=== PATIENT | male | born 1985 | race Caucasian/White ===

== ENCOUNTER 2020-07-15 10:48 | Inpatient (IN) | payer OTHER ==
[2020-07-15] MEDS ORDERED: SODIUM CHLORIDE 0.9% 1,000 ML IV ONE (10:52)
--- NOTE | 2020-07-15 11:04 | ED ---
General Adult HPI - General Stated complaint: Altered Time Seen by Provider: 07/15/20 10:50 Source: police, EMS, RN notes reviewed Mode of arrival: EMS Limitations: altered mental status - History of Present Illness Initial comments: 35-year-old male presenting with altered mental status. She was found at the [facility] border acting appropriately. He was transported to the [facility] side of the border where local police had gotten involved along with paramedics. Apparently the patient had been staring off into space, not acting appropriately. There was a reported history of a similar incident with this patient approximately one week ago at the [facility]. Patient is not answering any questions. He had stable vitals during transport, normal blood glucose. He had purposeful movement according to EMS throughout transport. He did ambulate to the stretcher initially. - Related Data Home Medications Medication Instructions Recorded Confirmed No Known Home Medications 07/15/20 07/15/20 Allergies Allergy/AdvReac Type Severity Reaction Status Date / Time No Known Allergies Allergy Unverified 07/15/20 11:55 Review of Systems ROS Statement: Those systems with pertinent positive or pertinent negative responses have been documented in the HPI. ROS Other: All systems not noted in ROS Statement are negative. Past Medical History Past Medical History: Unable to Obtain History of Any Multi-Drug Resistant Organisms: Unobtainable Past Surgical History: Unable to Obtain Smoking Status: Unknown if ever smoked Past Alcohol Use History: Unable to Obtain Past Drug Use History: Unable to Obtain General Exam Limitations: altered mental status General appearance: in no apparent distress, appears intoxicated, lethargic Head exam: Present: atraumatic, normocephalic Eye exam: Present: normal appearance, PERRL ENT exam: Present: normal exam Neck exam: Present: normal inspection. Absent: tenderness, meningismus Respiratory exam: Present: other (Mild tachypnea). Absent: respiratory distress Cardiovascular Exam: Present: regular rate, normal rhythm GI/Abdominal exam: Present: soft. Absent: distended, tenderness, guarding, rebound Extremities exam: Present: normal inspection, normal capillary refill. Absent: calf tenderness Neurological exam: Present: motor sensory deficit (Patient does appear to have purposeful movement in all 4 extremities.). Absent: alert, oriented X3 Skin exam: Present: warm, dry Course Vital Signs 07/15/20 07/15/20 10:49 11:12 Temperature 99.1 F Pulse Rate 83 82 Respiratory 18 18 Rate Blood Pressure 163/107 143/91 O2 Sat by Pulse 100 100 Oximetry - Reevaluation(s) Reevaluation #1: 07/15/20 12:13 Patient awake alert, threatening to leave, acting acutely psychotic. He has be en petitioned by police for his behavior. Medical history and psychiatric history is not known on this patient. He will be evaluated by EPS. His medical clearance has been complete his drug screen is positive for THC, otherwise no acute abnormalities. EKG Findings - EKG Comments: EKG Findings:: EKG: Normal sinus rhythm, rate of 75 AR interval 154, QRS duration 84, QTC 457, no ST segment elevation. Procedures - Restraint - Face to Face Restraint Occurrence 1 Patient's Immediate Situation: Endangers self safety, Endangers others' safety, Endangers staff safety Patient's Reaction to the Intervention: Appropriate, Calm, Relaxed, Cooperative Patient's Medical & Behavioral Condition: Awake, Alert, Follows directions Need to Continue or Terminate Restraint or Seclusion: Continue Face to Face Eval of Restraint Date: 07/15/20 Face to Face Eval of Restraint Time: 12:13 Medical Decision Making - Medical Decision Making Patient was medically cleared, he is answering questions, he is evaluated by EPS and felt to require inpatient psychiatric evaluation and treatment. He will be admitted to this institution. - Lab Data Result diagrams: 07/15/20 10:57 07/15/20 10:57 Lab Results 07/15/20 07/15/20 07/15/20 Range/Units 10:57 10:57 10:57 WBC 12.0 H (3.8-10.6) k/uL RBC 5.39 (4.30-5.90) m/uL Hgb 16.3 (13.0-17.5) gm/dL Hct 46.2 (39.0-53.0) % MCV 85.8 (80.0-100.0) fL MCH 30.3 (25.0-35.0) pg MCHC 35.4 (31.0-37.0) g/dL RDW 13.5 (11.5-15.5) % Plt Count 222 (150-450) k/uL MPV 9.5 Neutrophils % 78 % Lymphocytes % 12 % Monocytes % 7 % Eosinophils % 2 % Basophils % 0 % Neutrophils # 9.3 H (1.3-7.7) k/uL Lymphocytes # 1.4 (1.0-4.8) k/uL Monocytes # 0.8 (0-1.0) k/uL Eosinophils # 0.3 (0-0.7) k/uL Basophils # 0.1 (0-0.2) k/uL PT 10.8 (9.0-12.0) sec INR 1.0 (<1.2) APTT 23.2 (22.0-30.0) sec Sodium (137-145) mmol/L Potassium (3.5-5.1) mmol/L Chloride (98-107) mmol/L Carbon Dioxide (22-30) mmol/L Anion Gap mmol/L BUN (9-20) mg/dL Creatinine (0.66-1.25) mg/dL Est GFR (CKD-EPI)AfAm (>60 ml/min/1.73 sqM) Est GFR (CKD-EPI)NonAf (>60 ml/min/1.73 sqM) Glucose (74-99) mg/dL POC Glucose (mg/dL) (75-99) mg/dL POC Glu Principal Account Clerk ID Calcium (8.4-10.2) mg/dL Total Bilirubin (0.2-1.3) mg/dL AST (17-59) U/L ALT (4-49) U/L Alkaline Phosphatase (38-126) U/L Ammonia (<30) umol/L Total Protein (6.3-8.2) g/dL Albumin (3.5-5.0) g/dL Urine Color Yellow Urine Appearance Clear (Clear) Urine pH 6.5 (5.0-8.0) Ur Specific [place] 1.012 (1.001-1.035) Urine Protein Negative (Negative) Urine Glucose (UA) Negative (Negative) Urine Ketones 3+ H (Negative) Urine Blood Negative (Negative) Urine Nitrite Negative (Negative) Urine Bilirubin Negative (Negative) Urine Urobilinogen <2.0 (<2.0) mg/dL Ur Leukocyte Esterase Negative (Negative) Urine Opiates Screen Not Detected (NotDetected) Ur Oxycodone Screen Not Detected (NotDetected) Urine Methadone Screen Not Detected (NotDetected) Ur Propoxyphene Screen Not Detected (NotDetected) Ur Barbiturates Screen Not Detected (NotDetected) U Tricyclic Antidepress Not Detected (NotDetected) Ur Phencyclidine Scrn Not Detected (NotDetected) Ur Amphetamines Screen Not Detected (NotDetected) U Methamphetamines Scrn Not Detected (NotDetected) U Benzodiazepines Scrn Not Detected (NotDetected) Urine Cocaine Screen Not Detected (NotDetected) U Marijuana (THC) Screen Detected H (NotDetected) Serum Alcohol mg/dL 07/15/20 07/15/20 07/15/20 Range/Units 10:57 10:57 11:11 WBC (3.8-10.6) k/uL RBC (4.30-5.90) m/uL Hgb (13.0-17.5) gm/dL Hct (39.0-53.0) % MCV (80.0-100.0) fL MCH (25.0-35.0) pg MCHC (31.0-37.0) g/dL RDW (11.5-15.5) % Plt Count (150-450) k/uL MPV Neutrophils % % Lymphocytes % % Monocytes % % Eosinophils % % Basophils % % Neutrophils # (1.3-7.7) k/uL Lymphocytes # (1.0-4.8) k/uL Monocytes # (0-1.0) k/uL Eosinophils # (0-0.7) k/uL Basophils # (0-0.2) k/uL PT (9.0-12.0) sec INR (<1.2) APTT (22.0-30.0) sec Sodium 138 (137-145) mmol/L Potassium 3.9 (3.5-5.1) mmol/L Chloride 107 (98-107) mmol/L Carbon Dioxide 18 L (22-30) mmol/L Anion Gap 13 mmol/L BUN 12 (9-20) mg/dL Creatinine 0.81 (0.66-1.25) mg/dL Est GFR (CKD-EPI)AfAm >90 (>60 ml/min/1.73 sqM) Est GFR (CKD-EPI)NonAf >90 (>60 ml/min/1.73 sqM) Glucose 121 H (74-99) mg/dL POC Glucose (mg/dL) 114 H (75-99) mg/dL POC Glu Principal Account Clerk ID Michela Gutierrez Calcium 10.1 (8.4-10.2) mg/dL Total Bilirubin 0.9 (0.2-1.3) mg/dL AST 26 (17-59) U/L ALT 19 (4-49) U/L Alkaline Phosphatase 59 (38-126) U/L Ammonia 15 (<30) umol/L Total Protein 7.9 (6.3-8.2) g/dL Albumin 5.1 H (3.5-5.0) g/dL Urine Color Urine Appearance (Clear) Urine pH (5.0-8.0) Ur Specific [place] (1.001-1.035) Urine Protein (Negative) Urine Glucose (UA) (Negative) Urine Ketones (Negative) Urine Blood (Negative) Urine Nitrite (Negative) Urine Bilirubin (Negative) Urine Urobilinogen (<2.0) mg/dL Ur Leukocyte Esterase (Negative) Urine Opiates Screen (NotDetected) Ur Oxycodone Screen (NotDetected) Urine Methadone Screen (NotDetected) Ur Propoxyphene Screen (NotDetected) Ur Barbiturates Screen (NotDetected) U Tricyclic Antidepress (NotDetected) Ur Phencyclidine Scrn (NotDetected) Ur Amphetamines Screen (NotDetected) U Methamphetamines Scrn (NotDetected) U Benzodiazepines Scrn (NotDetected) Urine Cocaine Screen (NotDetected) U Marijuana (THC) Screen (NotDetected) Serum Alcohol <10 mg/dL Disposition Clinical Impression: Acute psychosis, Marijuana use Disposition: ADMITTED IP TO THIS [facility] Condition: Stable Is patient prescribed a controlled substance at d/c from ED?: No Referrals: None,Stated [Primary Care Provider] - 1-2 days Decision to Admit Reason: Admit from EC Decision Date: 07/15/20 Decision Time: 12:34
[2020-07-15 11:14] LABS: Glucose,Whole Blood 114 mg/dL (75-99)
[2020-07-15 11:15] LABS: Basophils # (A) 0.1 k/uL (0-0.2); Basophils % (A) 0 %; Eosinophils # (A) 0.3 k/uL (0-0.7); Eosinophils % (A) 2 %; HCT 46.2 % (39.0-53.0); HGB 16.3 gm/dL (13.0-17.5); Lymphocytes # (A) 1.4 k/uL (1.0-4.8); Lymphocytes % (A) 12 %; MCH 30.3 pg (25.0-35.0); MCHC 35.4 g/dL (31.0-37.0); MCV 85.8 fL (80.0-100.0); Mean Platelet Volume 9.5; Monocytes # (A) 0.8 k/uL (0-1.0); Monocytes % (A) 7 %; Neutrophils # (A) 9.3 k/uL (1.3-7.7); Neutrophils % (A) 78 %; Platelet Count 222 k/uL (150-450); RBC 5.39 m/uL (4.30-5.90); RDW 13.5 % (11.5-15.5)
[2020-07-15 11:26] LABS: ALT 19 U/L (4-49); AST 26 U/L (17-59); African American GFR (CKD) >90 (>60 ml/min/1.73 sqM); Albumin 5.1 g/dL (3.5-5.0); Alcohol <10 mg/dL; Alkaline Phosphatase 59 U/L (38-126); Anion Gap 13 mmol/L; Blood Urea Nitrogen 12 mg/dL (9-20); Calcium 10.1 mg/dL (8.4-10.2); Carbon Dioxide 18 mmol/L (22-30); Chloride 107 mmol/L (98-107); Glucose 121 mg/dL (74-99); Non-African American GFR(CKD) >90 (>60 ml/min/1.73 sqM); Potassium 3.9 mmol/L (3.5-5.1); Sodium 138 mmol/L (137-145); Total Bilirubin 0.9 mg/dL (0.2-1.3); Total Protein 7.9 g/dL (6.3-8.2)
[2020-07-15 11:27] LABS: Appearance,Urine Clear (Clear); Bilirubin,Urine Negative (Negative); Blood,Urine Negative (Negative); Color,Urine Yellow; Glucose,Urine (UA) Negative (Negative); Ketones,Urine 3+ (Negative); Leukocyte Esterase,Urine Negative (Negative); Nitrite,Urine Negative (Negative); PH, Urine 6.5 (5.0-8.0); Partial Thromboplastin Time 23.2 sec (22.0-30.0); Protein,Urine Negative (Negative); Prothrombin Time 10.8 sec (9.0-12.0); Specific Gravity,Urine 1.012 (1.001-1.035); Urobilinogen,Urine <2.0 mg/dL (<2.0)
--- NOTE | 2020-07-15 11:43 | CT ---
EXAMINATION TYPE: CT brain wo con DATE OF EXAM: 07/15/2020 COMPARISON: None. HISTORY: Altered mental status and confusion. CT DLP: 49.1 mGycm. Automated Exposure Control for Dose Reduction was Utilized. TECHNIQUE: CT scan of the head is performed without contrast. FINDINGS: There is no acute intracranial hemorrhage, mass effect, or midline shift identified. The ventricles and sulci are within normal limits in size. Cisneros-white matter differentiation is maintain ed. The globes are intact and the visualized sinuses are clear. No suspicious opacification mastoid a ir cells bilaterally. IMPRESSION: Unremarkable study.
[2020-07-15 11:57] LABS: Amphetamine Screen,Urine Not Detected (NotDetected); Barbiturate Screen,Urine Not Detected (NotDetected); Benzodiazepines Screen,Urine Not Detected (NotDetected); Cocaine Screen,Urine Not Detected (NotDetected); Methadone Screen, Urine Not Detected (NotDetected); Opiate Screen,Urine Not Detected (NotDetected); Oxycodone Screen, Urine Not Detected (NotDetected); Phencyclidine Screen,Urine Not Detected (NotDetected); Tricyclic Antidepressant,Urine Not Detected (NotDetected); Urn Cannabinoid Scrn Detected (NotDetected)
[2020-07-15] MEDS ORDERED: LORazepam 1 MG TAB PO PRN (14:03)
[2020-07-15] MEDS ORDERED: ACETAMINOPHEN TAB 325 MG TAB PO PRN (14:03)
[2020-07-15] MEDS ORDERED: MAGNESIUM HYDROXIDE 2,400 MG/10 ML CUP PO PRN (14:03)
[2020-07-15] MEDS ORDERED: MAG HYDROX/AL HYDROX/SIMETH 30 ML CUP PO PRN (14:03)
[2020-07-15] MEDS ORDERED: LORazepam 2 MG/ML INJ IM PRN (14:14)
[2020-07-15] MEDS ORDERED: HALOPERIDOL LACTATE 5 MG/ML 1 ML VIAL IM SCH (16:00)
[2020-07-15] MEDS ORDERED: HALOPERIDOL LACTATE 5 MG/ML 1 ML VIAL IM PRN (20:04)
--- NOTE | 2020-07-16 03:16 | P.MDCNMH ---
History of Present Illness H&P Date: 07/16/20 Chief Complaint: medical eval 35 year old male , no significant past medical history , mental health history of depression patien tclaims that he was having uncontrolled depression , with suicidal ideation. ER note, reported that he was found disoriented at the [facility]. patient admits to tobacco smoking, occasional weed, and occasional binging on alcohol . denies going through withdrawals when he does not drink. he otherwise, denies any fever, chills, chest pain , trouble breathing, cough, abd pain , nausea, vomiting, changes in bowel habits, or urinary habits. Review of Systems Pertinent positives as noted in HPI. All other systems were reviewed and are negative Past Medical History Past Medical History: Unable to Obtain History of Any Multi-Drug Resistant Organisms: Unobtainable Past Surgical History: Unable to Obtain Past Anesthesia/Blood Transfusion Reactions: No Reported Reaction Past Psychological History: No Psychological Hx Reported Smoking Status: Current every day smoker, Unknown if ever smoked Past Alcohol Use History: Unable to Obtain Past Drug Use History: None Reported Medications and Allergies Home Medications Medication Instructions Recorded Confirmed Type No Known Home Medications 07/15/20 07/15/20 History Allergies Allergy/AdvReac Type Severity Reaction Status Date / Time No Known Allergies Allergy Unverified 07/15/20 11:55 Physical Exam Vitals: Vital Signs Temp Pulse Pulse Resp BP BP Pulse Ox 07/15/20 16:01 96.9 F L 99 20 128/64 07/15/20 11:12 82 18 143/91 100 07/15/20 10:49 99.1 F 83 18 163/107 100 Intake and Output 07/15/20 07/15/20 07/16/20 14:59 22:59 06:59 Other: Weight 95.254 kg 86.296 kg Constitutional: No acute distress, conversant, pleasant Eyes: Anicteric sclerae, moist conjunctiva, Pupils equal round reactive to light ENMT: NC/AT Oropharynx clear, no erythema, or exudates Neck: Supple, FROM, no masses, or JVD No carotid bruits No thyromegaly Lungs: Clear to auscultation Clear to percussion Normal respiratory effort, no accessory muscle use Cardiovascular: Heart regular in rate and rhythm, No murmurs, gallops, or rubs No peripheral edema Abdominal: Soft Nontender, no guarding, rebound or rigidity Abdomen moving with respiration Normoactive bowel sounds No hepatomegaly, No splenomegaly No palpable mass No abdominal wall hernia noted Skin: Normal temperature, tone, texture, turgor No induration No subcutaneous nodules No rash, lesions No ulcers Extremities: No digital cyanosis No clubbing Pedal pulses intact and symmetrical Radial pulses intact and symmetrical No calf tenderness Psychiatric: Alert and oriented to person, place and time Appropriate affect fair judgement Neuro Muscles Strength 5/5 in all 4 extremities Sensation to light touch grossly present throughout Cranial nerves II-XII grossly intact No focal sensory deficits Lymphatics: no palpable cervical or supraclavicular , or inguinal lymph nodes Cranial Nerve Examination - Cranial Nerves Cranial Nerve II- Optic: Intact Cranial Nerve III- Oculomotor: Intact Cranial Nerve IV- Trochlear: Intact Cranial Nerve V- Trigeminal: Intact Cranial Nerve - Abducens: Intact Cranial Nerve VII- Facial: Intact Cranial Nerve VIII- Auditory: Intact Cranial Nerve IX- Glossopharyngeal: Intact Cranial Nerve X- Vagus: Intact Cranial Nerve XI- Accessory: Intact Cranial Nerve XII- Hypoglossal: Intact Results CBC & Chem 7: 07/15/20 10:57 07/15/20 10:57 Labs: Abnormal Lab Results - Last 24 Hours (Table) 07/15/20 07/15/20 07/15/20 Range/Units 10:57 10:57 10:57 WBC 12.0 H (3.8-10.6) k/uL Neutrophils # 9.3 H (1.3-7.7) k/uL Carbon Dioxide 18 L (22-30) mmol/L Glucose 121 H (74-99) mg/dL POC Glucose (mg/dL) (75-99) mg/dL Albumin 5.1 H (3.5-5.0) g/dL Urine Ketones 3+ H (Negative) U Marijuana (THC) Screen Detected H (NotDetected) 07/15/20 Range/Units 11:11 WBC (3.8-10.6) k/uL Neutrophils # (1.3-7.7) k/uL Carbon Dioxide (22-30) mmol/L Glucose (74-99) mg/dL POC Glucose (mg/dL) 114 H (75-99) mg/dL Albumin (3.5-5.0) g/dL Urine Ketones (Negative) U Marijuana (THC) Screen (NotDetected) Assessment and Plan Assessment: depression with suicidal ideation management per psych tobacco smoking NRT offered. labs reviewed Thank you for allowing us to participate in the care of this patient. We will follow peripherally. Do not hesitate to contact us with questions. Someone can be reached from the [facility] hospitalist group at all hours of the day at [phone].
[2020-07-16 08:56] LABS: Basophils # (A) 0.1 k/uL (0-0.2); Basophils % (A) 1 %; Eosinophils # (A) 0.1 k/uL (0-0.7); Eosinophils % (A) 1 %; HCT 48.5 % (39.0-53.0); HGB 15.9 gm/dL (13.0-17.5); Lymphocytes % (A) 22 %; MCH 29.3 pg (25.0-35.0); MCHC 32.7 g/dL (31.0-37.0); MCV 89.7 fL (80.0-100.0); Mean Platelet Volume 9.8; Monocytes # (A) 0.6 k/uL (0-1.0); Monocytes % (A) 7 %; Neutrophils # (A) 6.1 k/uL (1.3-7.7); Neutrophils % (A) 67 %; Platelet Count 221 k/uL (150-450); RBC 5.41 m/uL (4.30-5.90); RDW 14.2 % (11.5-15.5); WBC 9.1 k/uL (3.8-10.6)
[2020-07-16 09:23] LABS: ALT 18 U/L (4-49); AST 32 U/L (17-59); African American GFR (CKD) >90 (>60 ml/min/1.73 sqM); Albumin 4.8 g/dL (3.5-5.0); Alkaline Phosphatase 53 U/L (38-126); Anion Gap 9 mmol/L; Blood Urea Nitrogen 16 mg/dL (9-20); Calcium 9.6 mg/dL (8.4-10.2); Carbon Dioxide 25 mmol/L (22-30); Chloride 107 mmol/L (98-107); Cholesterol 136 mg/dL (<200); Glucose 90 mg/dL (74-99); HDL Cholesterol 60 mg/dL (40-60); LDL Cholesterol,Calculated 65 mg/dL (0-99); Non-African American GFR(CKD) >90 (>60 ml/min/1.73 sqM); Potassium 4.1 mmol/L (3.5-5.1); Sodium 141 mmol/L (137-145); Total Bilirubin 0.8 mg/dL (0.2-1.3); Total Protein 7.6 g/dL (6.3-8.2); Triglycerides 54 mg/dL (<150)
[2020-07-16] MEDS: NICOTINE 14MG/24HR PATCH TRANSDERM SCH (10:19)
--- NOTE | 2020-07-16 12:52 | P.HP ---
Psychiatric H&P - . H&P Date: 07/16/20 History & Physical: Allergies Allergy/AdvReac Type Severity Reaction Status Date / Time No Known Allergies Allergy Unverified 07/15/20 11:55 Vital Signs Temp 96.9 F L 07/15/20 16:01 Pulse 99 07/15/20 16:01 Resp 20 07/15/20 16:01 BP 128/64 07/15/20 16:01 Pulse Ox 100 07/15/20 11:12 Intake & Output 07/15/20 07/16/20 07/16/20 18:59 06:59 18:59 Weight 86.296 kg Laboratory Last Values WBC 9.1 k/uL (3.8-10.6) 07/16/20 06:44 RBC 5.41 m/uL (4.30-5.90) 07/16/20 06:44 Hgb 15.9 gm/dL (13.0-17.5) 07/16/20 06:44 Hct 48.5 % (39.0-53.0) 07/16/20 06:44 MCV 89.7 fL (80.0-100.0) 07/16/20 06:44 MCH 29.3 pg (25.0-35.0) 07/16/20 06:44 MCHC 32.7 g/dL (31.0-37.0) 07/16/20 06:44 RDW 14.2 % (11.5-15.5) 07/16/20 06:44 Plt Count 221 k/uL (150-450) 07/16/20 06:44 MPV 9.8 07/16/20 06:44 Neutrophils % 67 % 07/16/20 06:44 Lymphocytes % 22 % 07/16/20 06:44 Monocytes % 7 % 07/16/20 06:44 Eosinophils % 1 % 07/16/20 06:44 Basophils % 1 % 07/16/20 06:44 Neutrophils # 6.1 k/uL (1.3-7.7) 07/16/20 06:44 Lymphocytes # 2.0 k/uL (1.0-4.8) 07/16/20 06:44 Monocytes # 0.6 k/uL (0-1.0) 07/16/20 06:44 Eosinophils # 0.1 k/uL (0-0.7) 07/16/20 06:44 Basophils # 0.1 k/uL (0-0.2) 07/16/20 06:44 PT 10.8 sec (9.0-12.0) 07/15/20 10:57 INR 1.0 (<1.2) 07/15/20 10:57 APTT 23.2 sec (22.0-30.0) 07/15/20 10:57 Sodium 141 mmol/L (137-145) 07/16/20 06:44 Potassium 4.1 mmol/L (3.5-5.1) 07/16/20 06:44 Chloride 107 mmol/L (98-107) 07/16/20 06:44 Carbon Dioxide 25 mmol/L (22-30) 07/16/20 06:44 Anion Gap 9 mmol/L 07/16/20 06:44 BUN 16 mg/dL (9-20) 07/16/20 06:44 Creatinine 0.96 mg/dL (0.66-1.25) 07/16/20 06:44 Est GFR (CKD-EPI)AfAm >90 (>60 ml/min/1.73 sqM) 07/16/20 06:44 Est GFR (CKD-EPI)NonAf >90 (>60 ml/min/1.73 sqM) 07/16/20 06:44 Glucose 90 mg/dL (74-99) 07/16/20 06:44 POC Glucose (mg/dL) 114 mg/dL (75-99) H 07/15/20 11:11 POC Glu Blind Hooker ID Michela Gutierrez 07/15/20 11:11 Calcium 9.6 mg/dL (8.4-10.2) 07/16/20 06:44 Total Bilirubin 0.8 mg/dL (0.2-1.3) 07/16/20 06:44 AST 32 U/L (17-59) 07/16/20 06:44 ALT 18 U/L (4-49) 07/16/20 06:44 Alkaline Phosphatase 53 U/L (38-126) 07/16/20 06:44 Ammonia 15 umol/L (<30) 07/15/20 10:57 Total Protein 7.6 g/dL (6.3-8.2) 07/16/20 06:44 Albumin 4.8 g/dL (3.5-5.0) 07/16/20 06:44 Triglycerides 54 mg/dL (<150) 07/16/20 06:44 Cholesterol 136 mg/dL (<200) 07/16/20 06:44 LDL Cholesterol, Calc 65 mg/dL (0-99) 07/16/20 06:44 HDL Cholesterol 60 mg/dL (40-60) 07/16/20 06:44 TSH 1.310 mIU/L (0.465-4.680) 07/16/20 06:44 Urine Color Yellow 07/15/20 10:57 Urine Appearance Clear (Clear) 07/15/20 10:57 Urine pH 6.5 (5.0-8.0) 07/15/20 10:57 Ur Specific [place] 1.012 (1.001-1.035) 07/15/20 10:57 Urine Protein Negative (Negative) 07/15/20 10:57 Urine Glucose (UA) Negative (Negative) 07/15/20 10:57 Urine Ketones 3+ (Negative) H 07/15/20 10:57 Urine Blood Negative (Negative) 07/15/20 10:57 Urine Nitrite Negative (Negative) 07/15/20 10:57 Urine Bilirubin Negative (Negative) 07/15/20 10:57 Urine Urobilinogen <2.0 mg/dL (<2.0) 07/15/20 10:57 Ur Leukocyte Esterase Negative (Negative) 07/15/20 10:57 Urine Opiates Screen Not Detected (NotDetected) 07/15/20 10:57 Ur Oxycodone Screen Not Detected (NotDetected) 07/15/20 10:57 Urine Methadone Screen Not Detected (NotDetected) 07/15/20 10:57 Ur Propoxyphene Screen Not Detected (NotDetected) 07/15/20 10:57 Ur Barbiturates Screen Not Detected (NotDetected) 07/15/20 10:57 U Tricyclic Antidepress Not Detected (NotDetected) 07/15/20 10:57 Ur Phencyclidine Scrn Not Detected (NotDetected) 07/15/20 10:57 Ur Amphetamines Screen Not Detected (NotDetected) 07/15/20 10:57 U Methamphetamines Scrn Not Detected (NotDetected) 07/15/20 10:57 U Benzodiazepines Scrn Not Detected (NotDetected) 07/15/20 10:57 Urine Cocaine Screen Not Detected (NotDetected) 07/15/20 10:57 U Marijuana (THC) Screen Detected (NotDetected) H 07/15/20 10:57 Serum Alcohol <10 mg/dL 07/15/20 10:57 Coronavirus (PCR) Not Detected (Not Detectd) 07/15/20 16:38 07/16/20 11:36 IDENTIFYING DATA: Patient is a 35-year-old male who is currently single has 1 and 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 Patient was initially from [place]. HPI: Patient presented to the hospital yesterday for altered mental status. Patient was apparently found at the [facility] border trying to cross into [place] and was acting inappropriately. Patient was brought into the hospital by police and petition. Patient apparently was acting inappropriately with staff and was uncooperative in the ER. Patient's UDS is positive for marijuana. Patient was seen on the unit wandering the hallways and was Gri[place] to speak to bid writer. Patient appeared to be responding to internal stimuli looking around th e room and commenting on different pictures and different objects that he sees. He appeared to have poor hygiene and grooming. He states that he came in the hospital because a "seizure I don't know". He states that he does not know why the police brought him into the hospital and was fairly guarded/evasive. He did admit to trying to cross the border into [place] however stated that "I had a fee ling to go there" when asked why he was trying to do that. He states that he only has one friend there and knows nobody else. He did not give a clear reason as to why he wanted to go to [place]. He claims that he is coming from [place] and was in [place] for the past 2 days living in his car. He states that he knows [place] [place]" in [place] and states that he is helped him before in the past. When asked about medications he states that he only smokes medical marijuana and does not believe in psychiatric medications. He states his sleep is okay and appetite is okay. Patient had poor reality testing. Patient denies any suicidal or homicidal ideations intent or plan. At this time patient denies any auditory or visual hallucinations. He admits to using marijuana daily about one joint a day and smokes cigarettes. PAST PSYCHIATRIC HISTORY: Patient states that he has no mental health diagnosis. Patient denies being on any psychiatric medications. Patient denies any previous psychiatric hospitalizations. Patient denies any psychiatric outpatient follow- up. Patient denies any history of suicide attempts in the past. PMH:denies ALLERGIES: as per EMR CHEMICAL DEPENDENCY HISTORY: as per HPI FAMILY PSYCHIATRIC/SUBSTANCE USE HISTORY: He states that his cousin has some form of mental illness. SOCIAL HISTORY: Patient was born and raised in [facility]. He states that he is currently single unmarried has 1 and is unemployed. 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 He claims that he completed high school only. He claims that he went to group home for substance abuse including heroin and meth in the past. MENTAL STATUS EXAM: General Appearance: Patient appears to be well built, disheveled in appearance, stated age is alert, evasive/guarded. Responding to internal stimuli. Patient appears to have poor hygiene and grooming. Behavior: Patient is seated without any agitated behavior. Responding to internal stimuli Speech: Patient's speech is fluent and nonpressured. Mood/Affect: Patient reports their mood is "okay", affect is congruent and constricted. Suicidality/Homicidality: Patient denies having any homicidal ideation intent or plan. Denies any suicidal ideations intent or plan Perceptions: Patient denies any visual hallucinations and denies any auditory hallucinations Though content/process: Patient is delusional, is bizarre at times. He had poverty of content. Memory and concentration: AOX3, grossly intact for the purposes of this session. Can spell "WORLD" backwards Judgment and insight: poor STRENGTHS/WEAKNESSES: strength is that patient is resilient. Weakness is that patient has poor judgment and is impulsive INTELLECT: average IMPRESSIONS: Psychosis unspecified, rule out secondary to cannabis use Cannabis use disorder Nicotine dependence PLAN: -Patient is admitted under voluntary status to MHU for stabilization of psychiatric symptoms and safety. Patient has not signed medication consent and is placed in patient's chart. A second certification was completed and along with petition will be filed for court as patient claims that he does not want to take any medications and has very poor insight. -Medications : Will start patient on Paliperidone by mouth 3 mg daily at bedtime -Ativan and Haldol PRN for agitation/aggression -Patient was counselled on substance abuse -Patient was informed of the risks, benefits and side effects of the medication and patient verbally consented to taking the medications. Patient signed med consent form and was placed in chart. -Internal Medicine consult to perform medical evaluation and physical. -NRT - nicotine patch -SW on board for discharge planning. Encourage patient to participate in groups to work on coping skills. Will await deferral and court date. 07/16/20 12:47
[2020-07-16 17:09] LABS: Hemoglobin A1C 5.4 % (4.0-6.0)
[2020-07-16] MEDS: PALIPERIDONE 3 MG TAB.ER.24 PO SCH (23:35)
[2020-07-17] MEDS: NICOTINE 14MG/24HR PATCH TRANSDERM SCH (09:12)
--- NOTE | 2020-07-17 11:15 | P.PN ---
Progress Note - Text Progress Note Date: 07/17/20 Interval History: Patient was seen wandering the hallways and was directable and agreeable to ernesto york with typewriter aligner in the office. Patient continues to have poor hygiene and grooming. He continues to have poor reality testing and states that he does not know why he is not Hospital. He claims that he does not know if he wants to go back into [facility] when he leaves the hospital. He states that "I'm just trying to figure things out and needs more rest". He was minimizing his need for treatment and continues to refuse medications. He has poor insight and judgment. At this time patient denies any suicidal or homical ideations, intent or plan. Patient denies any auditory, visual hallucinations and denies any paranoia or delusions. Patient denies any side effects from the medications and has been compliant with meds. Mental Status Exam: General Appearance: Patient appears to be well built, disheveled in appearance, stated age is alert, evasive/guarded. Responding to internal stimuli. Patient appears to have poor hygiene and grooming. Behavior: Patient is seated without any agitated behavior. Speech: Patient's speech is fluent and nonpressured. Mood/Affect: Patient reports their mood is "ok", affect is congruent and constricted. Suicidality/Homicidality: Patient denies having any homicidal ideation intent or plan. Denies any suicidal ideations intent or plan Perceptions: Patient denies any visual hallucinations and denies any auditory hallucinations Though content/process: Patient is concrete, illogical at times. He had poverty of content. Superficial Memory and concentration: AOX3, grossly intact for the purposes of this session. Can spell "WORLD" backwards Judgment and insight: poor Assessment Psychosis unspecified, rule out secondary to cannabis use Cannabis use disorder Nicotine dependence Plan: -Patient continues to meet criteria for inpatient psychiatric admission for symptom stabilization and safety. Patient has not signed adult voluntary form and medication consent and was placed in patient's chart. 2 certs and petitions were filed and awaiting deferral and court date. -Medications: Continue with paliperidone daily at bedtime 3 mg for psychosis. -When necessary Ativan and Haldol for agitation/aggression. -NRT - nicotine patch -SW on board for discharge planning. Encouraged the patient to participate in milieu. Currently awaiting deferral with real estate attorney and court date.
[2020-07-17] MEDS: PALIPERIDONE 3 MG TAB.ER.24 PO SCH (23:34)
[2020-07-18] MEDS: NICOTINE 14MG/24HR PATCH TRANSDERM SCH (08:57)
--- NOTE | 2020-07-18 10:35 | P.PN ---
Progress Note - Text Progress Note Date: 07/18/20 Interval History: Patient was seen laying in bed this morning and did not want to get up out of his bed to speak with television writer. He had a T-shirt covering his eyes and most of his face. He was agreeable to speech in his room today. He continues to have poor reality testing and states that he does not know why he is in the Hospital. He also continues to state that he does not know why he went to [facility] and claims that "maybe I just needed sleep". He continues to state that he has "a lot of thoughts in my head" and states that he is trying to "work it on them". He states that he went to group earlier today however left early. He was fairly superficial about what he is learning in group. He continues to refuse medications and treatment and is waiting to speak to his farm implement engine mechanic. He has poor insight and judgment. At this time patient denies any suicidal or homical ideations, intent or plan. Patient denies any auditory, visual hallucinations and denies any paranoia or delusions. Patient has been refusing medications. Mental Status Exam: General Appearance: Patient appears to be well built, disheveled in appearance, stated age is alert, mildly more cooperative today. Patient appears to have mildly improving hygiene and grooming. Behavior: Patient is seated without any agitated behavior. Speech: Patient's speech is fluent and nonpressured. Mood/Affect: Patient reports their mood is "fine", affect is congruent and constricted. Suicidality/Homicidality: Patient denies having any homicidal ideation intent or plan. Denies any suicidal ideations intent or plan Perceptions: Patient denies any visual hallucinations and denies any auditory hallucinations Though content/process: Patient is concrete, illogical at times. He had poverty of content. Superficial Memory and concentration: AOX3, grossly intact for the purposes of this session. Judgment and insight: poor Assessment Psychosis unspecified, rule out secondary to cannabis use Cannabis use disorder Nicotine dependence Plan: -Patient continues to meet criteria for inpatient psychiatric admission for symptom stabilization and safety. Patient has not signed adult voluntary form and medication consent and was placed in patient's chart. 2 certs and petitions were filed and awaiting deferral and court date. -Medications: Continue with paliperidone daily at bedtime 3 mg for psychosis. Patient has been refusing this medication. -When necessary Ativan and Haldol for agitation/aggression. -NRT - nicotine patch -SW on board for discharge planning. Encouraged the patient to participate in milieu. Patient will be meeting with his civil litigation attorney tomorrow for deferral.
[2020-07-18] MEDS: PALIPERIDONE 3 MG TAB.ER.24 PO SCH (20:46)
[2020-07-19] MEDS: NICOTINE 14MG/24HR PATCH TRANSDERM SCH (08:12)
--- NOTE | 2020-07-19 10:14 | P.PN ---
Progress Note - Text Progress Note Date: 07/19/20 Interval History: Patient was seen sitting in on group this morning and was agreeable to speak to the scientific writer in the office today. He is showing mild improvement in his demeanor and was more cooperative today with scientific writer was fairly polite. He continues to speak vaguely about why he came to the hospital and continues to state "I don't know what was going on maybe I was having a seizure or lack of sleep". 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 He claims that he has been going to groups and been socializing with others on the unit. He continues to state that he has "a lot of thoughts in my head" and states that he is trying to "work it on them". He also claims that he has not spoken with his family since leaving [place] and claims that he will be calling them today. He continues to refuse medications and treatment and is waiting to speak to his meteorologist in charge and possibly the patrol judge. At this time patient denies any suicidal or homical ideations, intent or plan. Patient denies any auditory, visual hallucinations and denies any paranoia or delusions. Patient has been refusing medications. Mental Status Exam: General Appearance: Patient appears to be well built, stated age is alert, mildly more cooperative today. Patient appears to have mildly improving hygiene and grooming. Behavior: Patient is seated without any agitated behavior. Speech: Patient's speech is fluent and nonpressured. Mood/Affect: Patient reports their mood is "ok", affect is congruent and constricted. Suicidality/Homicidality: Patient denies having any homicidal ideation intent or plan. Denies any suicidal ideations intent or plan Perceptions: Patient denies any visual hallucinations and denies any auditory hallucinations Though content/process: Patient is concrete, more logical today. He had poverty of content. Memory and concentration: AOX3, grossly intact for the purposes of this session. Judgment and insight: poor, improving mildly Assessment Psychosis unspecified, rule out secondary to cannabis use Cannabis use disorder Nicotine dependence Plan: -Patient continues to meet criteria for inpatient psychiatric admission for symptom stabilization and safety. Patient has not signed adult voluntary form and medication consent and was placed in patient's chart. -Medications: Continue with paliperidone daily at bedtime 3 mg for psychosis. Patient has been refusing this medication. -When necessary Ativan and Haldol for agitation/aggression. -NRT - nicotine patch -SW on board for discharge planning. Encouraged the patient to participate in milieu. Patient will be meeting with his commercial real estate attorney today for deferral and full hearing is set for 08/01/2020..
[2020-07-19] MEDS: PALIPERIDONE 3 MG TAB.ER.24 PO SCH (20:37)
[2020-07-20] MEDS: NICOTINE 14MG/24HR PATCH TRANSDERM SCH (08:16)
--- NOTE | 2020-07-20 11:13 | P.DS ---
Providers Date of admission: 07/15/20 13:45 Expected date of discharge: 07/20/20 Attending physician: Hans Caro MD Consults: 07/15/20 14:03 Consult Physician Routine Consulting Provider: Breanna Carrion Consult Reason/Comments: medical management Do you want consulting provider notified?: Yes Primary care physician: Stated None - Discharge Diagnosis(es) (1) Brief psychotic disorder Current Visit: Yes Status: Acute Priority: High (2) Cannabis use disorder, mild, abuse Current Visit: Yes Status: Acute Priority: Medium (3) Nicotine dependence Current Visit: Yes Status: Acute Priority: Low Hospital Course: Admission HPI: Admission note was completed by magnetic tape typewriter operator "Patient is a 35-year-old male who is currently single has 1 and 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 Patient was initially from [place]. Patient presented to the hospital [facility] for altered mental status. Patient was apparently found at the [facility] border trying to cross into [place] and was acting inappropriately. Patient was brought into the hospital by police and petition. Patient apparently was acting inappropriately with staff and was uncooperative in the ER. Patient's UDS is positive for marijuana. Patient was seen on the unit wandering the hallways and was Griebel to speak to magnetic tape typewriter operator. Patient appeared to be responding to internal stimuli looking around the room and commenting on different pictures and different objects that he sees. He appeared to have poor hygiene and grooming. He states that he came in the hospital because a "seizure I don't know". He states that he does not know why the police brought him into the hospital and was fairly guarded/evasive. He did admit to trying to cross the border into [place] however stated that "I had a feeling to go there" when asked why he was trying to do that. He states that he only has one friend there and knows nobody else. He did not give a clear reason as to why he wanted to go to [place]. He claims that he is coming from [place] and was in [place] for the past 2 days living in his car. He states that he knows "[place] north" in [place] and states that he is helped him before in the past. When asked about medications he states that he only smokes medical marijuana and does not believe in psychiatric medications. He states his sleep is okay and appetite is okay. Patient had poor reality testing. Patient denies any suicidal or homicidal ideations intent or plan. At this time patient denies any auditory or visual hallucinations. He admits to using marijuana daily about one joint a day and smokes cigarettes." Hospital course: Upon admission to the unit patient was initially bizarre and responding to internal stimuli. Patient was however petitioned and 2 certificates were filed with the courts. Patient was admitted involuntarily on the unit. With time, patient gradually improved in terms of his cognition, psychosis and behaviors and was more appropriate. Patient got along well with other patients on the unit and followed unit protocol. Patient refused to be put on any medications while on the unit. Patient spoke of his stressors and engaged in therapy both group and individual. Patient was also seen by medical team for history and physical exam. Throughout the course of the hospitalization patient gradually improved with regards to mood, psychosis, sleep and became more future oriented with improved insight and judgment. On the day of discharge patient denied any suicidal or homicidal ideations intent or plan denied any auditory or visual hallucinations. Patient endorsed wanting to live for his son and family. The patient denied any access to guns or weapons. Patient denied any paranoia and did not endorse any delusions. Patient does have a significant history of substance abuse and was counseled on abstaining from all substances including alcohol and marijuana. Patient was offered however declined inpatient substance- abuse rehab. Patient was also counseled on the medications and need for regular compliance and was encouraged to follow-up with their outpatient appointment for mental health and also for primary care. Prior to discharge a family meeting will be arranged by social worker health services to answer any questions and ensure safety upon discharge. Patient will be meeting with the supervisor asbestos textile today to sign the deferral and will be agreeable to follow-up with [facility] to monitor his symptoms in the future. Mental status exam: General Appearance: Patient appears to be tall, stated age is alert, pleasant, and cooperative. Patient is in no acute distress and has improved hygiene and grooming Behavior: Patient is calmly seated without any agitated behavior. Speech: Patient's speech is fluent and nonpressured. Mood/Affect: Patient reports their mood is "better", affect is congruent and euthymic. Suicidality/Homicidality: Patient denies having any suicidal or homicidal ideation intent or plan. Perceptions: Patient denies any auditory or visual hallucinations. Though content/process: There is no evidence of any delusional thought content and thought process is linear and goal-directed. Memory and concentration: AOX3, grossly intact for the purposes of this session. Can spell "WORLD" backwards correctly. Judgment and insight: improved with guarded prognosis Impression: Brief psychotic disorder Cannabis use disorder mild Nicotine dependence Plan: -Continue with discharge today as patient has improved and stabilized psychiatrically and is not currently an imminent threat to himself and/or others. -Continue medications: Patient declined medications while on the unit and cleared up psychiatrically and cognitively with time and without medications. He will be followed by his outpatient team at [facility] if patient will need to be started on medications in the near future. -Patient was counseled on the need for medication compliance and appropriate follow-up at mental health and also primary care for medical issues. Patient verbalized understanding and agreed. -Social work to assist with patient retrieving his car today from impoundment and also to reach out to supervisor asbestos textile to go through deferral today with patient. If patient defers then he will be discharged today. Social work also to arrange fo r patients follow up appointments with [facility] for psychiatric care along with follow up with primary care provider. -Patient counseled on abstaining from recreational drugs and marijuana and alcohol. Was informed/educated on the adverse effects on their physical and mental health. Patient verbally agreed and understood. Patient was offered substance abuse treatment however declined at this time. -Patient was instructed to return to the hospital or seek immediate medical care if their psychiatric or medical symptoms do worsen or reoccur. Allergies Allergy/AdvReac Type Severity Reaction Status Date / Time No Known Allergies Allergy Unverified 07/15/20 11:55 Laboratory Results WBC 9.1 k/uL (3.8-10.6) 07/16/20 06:44 RBC 5.41 m/uL (4.30-5.90) 07/16/20 06:44 Hgb 15.9 gm/dL (13.0-17.5) 07/16/20 06:44 Hct 48.5 % (39.0-53.0) 07/16/20 06:44 MCV 89.7 fL (80.0-100.0) 07/16/20 06:44 MCH 29.3 pg (25.0-35.0) 07/16/20 06:44 MCHC 32.7 g/dL (31.0-37.0) 07/16/20 06:44 RDW 14.2 % (11.5-15.5) 07/16/20 06:44 Plt Count 221 k/uL (150-450) 07/16/20 06:44 MPV 9.8 07/16/20 06:44 Neutrophils % 67 % 07/16/20 06:44 Lymphocytes % 22 % 07/16/20 06:44 Monocytes % 7 % 07/16/20 06:44 Eosinophils % 1 % 07/16/20 06:44 Basophils % 1 % 07/16/20 06:44 Neutrophils # 6.1 k/uL (1.3-7.7) 07/16/20 06:44 Lymphocytes # 2.0 k/uL (1.0-4.8) 07/16/20 06:44 Monocytes # 0.6 k/uL (0-1.0) 07/16/20 06:44 Eosinophils # 0.1 k/uL (0-0.7) 07/16/20 06:44 Basophils # 0.1 k/uL (0-0.2) 07/16/20 06:44 PT 10.8 sec (9.0-12.0) 07/15/20 10:57 INR 1.0 (<1.2) 07/15/20 10:57 APTT 23.2 sec (22.0-30.0) 07/15/20 10:57 Sodium 141 mmol/L (137-145) 07/16/20 06:44 Potassium 4.1 mmol/L (3.5-5.1) 07/16/20 06:44 Chloride 107 mmol/L (98-107) 07/16/20 06:44 Carbon Dioxide 25 mmol/L (22-30) 07/16/20 06:44 Anion Gap 9 mmol/L 07/16/20 06:44 BUN 16 mg/dL (9-20) 07/16/20 06:44 Creatinine 0.96 mg/dL (0.66-1.25) 07/16/20 06:44 Est GFR (CKD-EPI)AfAm >90 (>60 ml/min/1.73 sqM) 07/16/20 06:44 Est GFR (CKD-EPI)NonAf >90 (>60 ml/min/1.73 sqM) 07/16/20 06:44 Glucose 90 mg/dL (74-99) 07/16/20 06:44 POC Glucose (mg/dL) 114 mg/dL (75-99) H 07/15/20 11:11 POC Glu Boiler Control Room Operator Michela Burns 07/15/20 11:[address] Glu mg/dL 108 07/16/20 06:44 Hemoglobin A1c 5.4 % (4.0-6.0) 07/16/20 06:44 Calcium 9.6 mg/dL (8.4-10.2) 07/16/20 06:44 Total Bilirubin 0.8 mg/dL (0.2-1.3) 07/16/20 06:44 AST 32 U/L (17-59) 07/16/20 06:44 ALT 18 U/L (4-49) 07/16/20 06:44 Alkaline Phosphatase 53 U/L (38-126) 07/16/20 06:44 Ammonia 15 umol/L (<30) 07/15/20 10:57 Total Protein 7.6 g/dL (6.3-8.2) 07/16/20 06:44 Albumin 4.8 g/dL (3.5-5.0) 07/16/20 06:44 Triglycerides 54 mg/dL (<150) 07/16/20 06:44 Cholesterol 136 mg/dL (<200) 07/16/20 06:44 LDL Cholesterol, Calc 65 mg/dL (0-99) 07/16/20 06:44 HDL Cholesterol 60 mg/dL (40-60) 07/16/20 06:44 TSH 1.310 mIU/L (0.465-4.680) 07/16/20 06:44 Urine Color Yellow 07/15/20 10:57 Urine Appearance Clear (Clear) 07/15/20 10:57 Urine pH 6.5 (5.0-8.0) 07/15/20 10:57 Ur Specific [place] 1.012 (1.001-1.035) 07/15/20 10:57 Urine Protein Negative (Negative) 07/15/20 10:57 Urine Glucose (UA) Negative (Negative) 07/15/20 10:57 Urine Ketones 3+ (Negative) H 07/15/20 10:57 Urine Blood Negative (Negative) 07/15/20 10:57 Urine Nitrite Negative (Negative) 07/15/20 10:57 Urine Bilirubin Negative (Negative) 07/15/20 10:57 Urine Urobilinogen <2.0 mg/dL (<2.0) 07/15/20 10:57 Ur Leukocyte Esterase Negative (Negative) 07/15/20 10:57 Urine Opiates Screen Not Detected (NotDetected) 07/15/20 10:57 Ur Oxycodone Screen Not Detected (NotDetected) 07/15/20 10:57 Urine Methadone Screen Not Detected (NotDetected) 07/15/20 10:57 Ur Propoxyphene Screen Not Detected (NotDetected) 07/15/20 10:57 Ur Barbiturates Screen Not Detected (NotDetected) 07/15/20 10:57 U Tricyclic Antidepress Not Detected (NotDetected) 07/15/20 10:57 Ur Phencyclidine Scrn Not Detected (NotDetected) 07/15/20 10:57 Ur Amphetamines Screen Not Detected (NotDetected) 07/15/20 10:57 U Methamphetamines Scrn Not Detected (NotDetected) 07/15/20 10:57 U Benzodiazepines Scrn Not Detected (NotDetected) 07/15/20 10:57 Urine Cocaine Screen Not Detected (NotDetected) 07/15/20 10:57 U Marijuana (THC) Screen Detected (NotDetected) H 07/15/20 10:57 Serum Alcohol <10 mg/dL 07/15/20 10:57 Coronavirus (PCR) Not Detected (Not Detectd) 07/15/20 16:38 Vital Signs Temp 97.5 F L 07/20/20 06:50 Pulse 78 07/20/20 06:50 Resp 16 07/20/20 06:50 BP 143/65 07/20/20 06:50 Pulse Ox 99 07/16/20 09:34 Patient Condition at Discharge: Stable Plan - Discharge Summary Discharge Rx Participant: No New Discharge Prescriptions: New Nicotine 14Mg/24Hr Patch [Habitrol] 1 patch TRANSDERM DAILY 14 Days patch Discharge Medication List Nicotine 14Mg/24Hr Patch [Habitrol] 1 patch TRANSDERM DAILY 14 Days patch 07/20/20 [Rx] Follow up Appointment(s)/Referral(s): None,Stated [Primary Care Provider] - 1-2 days Activity/Diet/Wound Care/Special Instructions: Activity and diet as tolerated. Avoid the use of street drugs and alcohol. Take all medications as prescribed. When you are in need of refills on your medications please contact your medical provider and/or outpatient psychiatrist to have this done. Please go to scheduled outpatient appointment for aftercare treatment. If symptoms return or become worse, call the crisis line at and/or go to the nearest emergency room for evaluation. Discharge Disposition: HOME SELF-CARE
[2020-07-20 22:07] LABS: Appearance,Urine Clear (Clear); Bilirubin,Urine Negative (Negative); Blood,Urine Negative (Negative); Color,Urine Colorless; Glucose,Urine (UA) Negative (Negative); Ketones,Urine Negative (Negative); Leukocyte Esterase,Urine Negative (Negative); Nitrite,Urine Negative (Negative); Protein,Urine Negative (Negative); Specific Gravity,Urine 1.006 (1.001-1.035); Urobilinogen,Urine <2.0 mg/dL (<2.0)
[2020-07-20] MEDS: PALIPERIDONE 3 MG TAB.ER.24 PO SCH (22:20)
[2020-07-21] MEDS: NICOTINE 14MG/24HR PATCH TRANSDERM SCH (08:27)
--- NOTE | 2020-07-21 11:19 | P.PN ---
Progress Note - Text Progress Note Date: 07/21/20 Interval History: Patient was seen in his room and was directable and agreeable to speak with freelance writer. He was admitted to Hospital because of psychosis. He stated that he was told that he tried to cross the border which he does not remember. He stated "I may have had seizures like moment". He stated he is going to refuse all the medications if he is prescribed any because he does not need any medications. 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 He appears to be quite grandiose. He also appears to be religiously preoccupied.. Mental Status Exam: General Appearance: Patient appears to be stated age is alert, directable, and cooperative. Behavior: Patient is un-calmly seated without any agitated behavior. Speech: Patient's speech is fluent and pressured. Mood/Affect: Affect is congruent and constricted. Mood is grandiose. Suicidality/Homicidality: Patient denies having any suicidal or homicidal ideation intent or plan. Perceptions: Patient denies any visual hallucinations and denies any auditory hallucinations Though content/process: There is evidence of delusional thought content and thought process is linear and goal-directed. Memory and concentration: AOX3, grossly intact for the purposes of this session Judgment and insight: Improving mildly Assessment This patient was admitted to Hospital because of symptoms of psychosis which she still continues to have. He is a high risk for hurting himself or hurting other people. Plan: -Patient continues to meet criteria for inpatient psychiatric admission for symptom stabilization and safety. -Medications: Stated he does not need any medication and he will not take any even if he he was prescribed. -When necessary Ativan and Haldol for agitation/aggression. -SW on board for discharge planning. Encouraged the patient to participate in milieu.
[2020-07-21 13:21] LABS: Urine Alcohol Negative (Negative); Urine Barbiturate Negative (Negative); Urine Cocaine Negative (Negative); Urine Methadone Negative (Negative); Urine Opiates Negative (Negative); Urine Phencyclidine Negative (Negative)
[2020-07-21] MEDS: PALIPERIDONE 3 MG TAB.ER.24 PO SCH (21:00)
[2020-07-22] MEDS: NICOTINE 14MG/24HR PATCH TRANSDERM SCH (08:10)
[2020-07-22 08:11] VITALS: PULSE 72
--- NOTE | 2020-07-22 12:37 | P.PN ---
Progress Note - Text Progress Note Date: 07/22/20 Interval History: Patient was seen in his room and was directable and agreeable to speak with functional tester typewriters. This 35-year-old male admitted with altered mental status. He was found at the [facility] border. He was transported to the [facility] side of the border where local police had gotten involved along with paramedics. Apparently the patient had been staring off into space, not acting appropriately. There was a reported history of a similar incident with this patient approximately one week ago at the [facility]. Patient was not answering any questions. Mental Status Exam: General Appearance: Patient appears to be stated age is alert, directable, and cooperative. Behavior: Patient is without any agitated behavior. Speech: Patient's speech is fluent and nonpressured. Mood/Affect: Mood is improving mildly, affect is labile. Suicidality/Homicidality: Patient denies having any suicidal or homicidal ideation intent or plan. Perceptions: Patient denies any visual hallucinations and denies any auditory h allucinations Though content/process: There is some evidence of delusional thought content. Memory and concentration: AOX3, grossly intact for the purposes of this session Judgment and insight: Improving mildly Assessment Patient continues to show symptoms of psychosis with altered reality. He shows no insight into his problems. Plan: -Patient continues to meet criteria for inpatient psychiatric admission for symptom stabilization and safety. -Medications: Patient stated he does not need the medication -When necessary Ativan and Haldol for agitation/aggression. -SW on board for discharge planning. Encouraged the patient to participate in milieu.
[2020-07-22] MEDS: PALIPERIDONE 3 MG TAB.ER.24 PO SCH (21:18)
[2020-07-23 08:30] VITALS: BP 132/82; RESP 16; TEMP 98.2
[2020-07-23] MEDS: NICOTINE 14MG/24HR PATCH TRANSDERM SCH (08:31)
--- NOTE | 2020-07-23 10:26 | P.DS ---
Providers Date of admission: 07/15/20 13:45 Expected date of discharge: 07/23/20 Attending physician: Hans Caro MD Consults: 07/15/20 14:03 Consult Physician Routine Consulting Provider: Breanna Carrion Consult Reason/Comments: medical management Do you want consulting provider notified?: Yes Primary care physician: Stated None - Discharge Diagnosis(es) (1) Brief psychotic disorder Current Visit: Yes Status: Acute Priority: High (2) Cannabis use disorder, mild, abuse Current Visit: Yes Status: Acute Priority: Medium (3) Nicotine dependence Current Visit: Yes Status: Acute Priority: Low Hospital Course: Admission HPI: Admission note was completed by report writer "Patient is a 35-year-old male who is currently single has 1 and 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 Patient was initially from [place]. Patient presented to the hospital [facility] for altered mental status. Patient was apparently found at the [facility] border trying to cross into [place] and was acting inappropriately. Patient was brought into the hospital by police and petition. Patient apparently was acting inappropriately with staff and was uncooperative in the ER. Patient's UDS is positive for marijuana. Patient was seen on the unit wandering the hallways and was Griebel to speak to report writer. Patient appeared to be responding to internal stimuli looking around the room and commenting on different pictures and different objects that he sees. He appeared to have poor hygiene and grooming. He states that he came in the hospital because a "seizure I don't know". He states that he does not know why the police brought him into the hospital and was fairly guarded/evasive. He did admit to trying to cross the border into [place] however stated that "I had a feeling to go there" when asked why he was trying to do that. He states that he only has one friend there and knows nobody else. He did not give a clear reason as to why he wanted to go to [place]. He claims that he is coming from [place] and was in [place] for the past 2 days living in his car. He states that he knows "[facility] [place]" in [place] and states that he is helped him before in the past. When asked about medications he states that he only smokes medical marijuana and does not believe in psychiatric medications. He states his sleep is okay and appetite is okay. Patient had poor reality testing. Patient denies any suicidal or homicidal ideations intent or plan. At this time patient denies any auditory or visual hallucinations. He admits to using marijuana daily about one joint a day and smokes cigarettes." Hospital course: Upon admission to the unit patient was initially bizarre and responding to internal stimuli. Patient was however petitioned and 2 certificates were filed with the courts. Patient was admitted involuntarily on the unit. With time, patient gradually improved in terms of his cognition, psychosis and behaviors and was more appropriate. Patient got along well with other patients on the unit and followed unit protocol. Patient refused to be put on any medications while on the unit. Patient spoke of his stressors and engaged in therapy both group and individual. Patient was also seen by medical team for history and physical exam. Throughout the course of the hospitalization patient gradually improved with regards to mood, psychosis, sleep and became more future oriented with improved insight and judgment. On the day of discharge patient denied any suicidal or homicidal ideations intent or plan denied any auditory or visual hallucinations. Patient endorsed wanting to live for his son and family. The patient denied any access to guns or weapons. Patient denied any paranoia and did not endorse any delusions. Patient does have a significant history of substance abuse and was counseled on abstaining from all substances including alcohol and marijuana. Patient was offered however declined inpatient substance- abuse rehab. Patient was also counseled on the medications and need for regular compliance and was encouraged to follow-up with their outpatient appointment for mental health and also for primary care. Prior to discharge a family meeting will be arranged by manager social to answer any questions and ensure safety upon discharge. The patient was supposed to meet with his attorney general on Thursday however met with him this morning on Thursday and ended up signing a deferral and agreeing to continue on with outpatient treatment. Mental status exam: General Appearance: Patient appears to be tall, stated age is alert, pleasant, and cooperative. Patient is in no acute distress and has improved hygiene and grooming Behavior: Patient is calmly seated without any agitated behavior. Speech: Patient's speech is fluent and nonpressured. Mood/Affect: Patient reports their mood is "good", affect is congruent and eu thymic. Suicidality/Homicidality: Patient denies having any suicidal or homicidal ideation intent or plan. Perceptions: Patient denies any auditory or visual hallucinations. Though content/process: There is no evidence of any delusional thought content and thought process is linear and goal-directed. Memory and concentration: AOX3, grossly intact for the purposes of this session. Can spell "WORLD" backwards correctly. Judgment and insight: improved with guarded prognosis Impression: Brief psychotic disorder Cannabis use disorder mild Nicotine dependence Plan: -Continue with discharge today as patient has improved and stabilized psychiatrically and is not currently an imminent threat to himself and/or others. -Continue medications: Patient declined medications while on the unit and cleared up psychiatrically and cognitively with time and without medications. He will be followed by his outpatient team at [facility] if patient will need to be started on medications in the near future. -Patient was counseled on the need for medication compliance and appropriate follow-up at mental health and also primary care for medical issues. Patient verbalized understanding and agreed. -Social work assisted patient with deferral process with his attorney general this morning, patient ended up signing deferral and agreeable to continue on with treatment. Social work also to arrange for patients follow up appointments with [facility] for psychiatric care along with follow up with primary care provider. -Patient counseled on abstaining from recreational drugs and marijuana and alcohol. Was informed/educated on the adverse effects on their physical and mental health. Patient verbally agreed and understood. Patient was offered substance abuse treatment however declined at this time. -Patient was instructed to return to the hospital or seek immediate medical care if their psychiatric or medical symptoms do worsen or reoccur. Allergies Allergy/AdvReac Type Severity Reaction Status Date / Time No Known Allergies Allergy Unverified 07/15/20 11:55 Laboratory Results WBC 9.1 k/uL (3.8-10.6) 07/16/20 06:44 RBC 5.41 m/uL (4.30-5.90) 07/16/20 06:44 Hgb 15.9 gm/dL (13.0-17.5) 07/16/20 06:44 Hct 48.5 % (39.0-53.0) 07/16/20 06:44 MCV 89.7 fL (80.0-100.0) 07/16/20 06:44 MCH 29.3 pg (25.0-35.0) 07/16/20 06:44 MCHC 32.7 g/dL (31.0-37.0) 07/16/20 06:44 RDW 14.2 % (11.5-15.5) 07/16/20 06:44 Plt Count 221 k/uL (150-450) 07/16/20 06:44 MPV 9.8 07/16/20 06:44 Neutrophils % 67 % 07/16/20 06:44 Lymphocytes % 22 % 07/16/20 06:44 Monocytes % 7 % 07/16/20 06:44 Eosinophils % 1 % 07/16/20 06:44 Basophils % 1 % 07/16/20 06:44 Neutrophils # 6.1 k/uL (1.3-7.7) 07/16/20 06:44 Lymphocytes # 2.0 k/uL (1.0-4.8) 07/16/20 06:44 Monocytes # 0.6 k/uL (0-1.0) 07/16/20 06:44 Eosinophils # 0.1 k/uL (0-0.7) 07/16/20 06:44 Basophils # 0.1 k/uL (0-0.2) 07/16/20 06:44 PT 10.8 sec (9.0-12.0) 07/15/20 10:57 INR 1.0 (<1.2) 07/15/20 10:57 APTT 23.2 sec (22.0-30.0) 07/15/20 10:57 Sodium 141 mmol/L (137-145) 07/16/20 06:44 Potassium 4.1 mmol/L (3.5-5.1) 07/16/20 06:44 Chloride 107 mmol/L (98-107) 07/16/20 06:44 Carbon Dioxide 25 mmol/L (22-30) 07/16/20 06:44 Anion Gap 9 mmol/L 07/16/20 06:44 BUN 16 mg/dL (9-20) 07/16/20 06:44 Creatinine 0.96 mg/dL (0.66-1.25) 07/16/20 06:44 Est GFR (CKD-EPI)AfAm >90 (>60 ml/min/1.73 sqM) 07/16/20 06:44 Est GFR (CKD-EPI)NonAf >90 (>60 ml/min/1.73 sqM) 07/16/20 06:44 Glucose 90 mg/dL (74-99) 07/16/20 06:44 POC Glucose (mg/dL) 114 mg/dL (75-99) H 07/15/20 11:11 POC Glu House Nurse Michela Burns 07/15/20 11:[address] Glu mg/dL 108 07/16/20 06:44 Hemoglobin A1c 5.4 % (4.0-6.0) 07/16/20 06:44 Calcium 9.6 mg/dL (8.4-10.2) 07/16/20 06:44 Total Bilirubin 0.8 mg/dL (0.2-1.3) 07/16/20 06:44 AST 32 U/L (17-59) 07/16/20 06:44 ALT 18 U/L (4-49) 07/16/20 06:44 Alkaline Phosphatase 53 U/L (38-126) 07/16/20 06:44 Ammonia 15 umol/L (<30) 07/15/20 10:57 Total Protein 7.6 g/dL (6.3-8.2) 07/16/20 06:44 Albumin 4.8 g/dL (3.5-5.0) 07/16/20 06:44 Triglycerides 54 mg/dL (<150) 07/16/20 06:44 Cholesterol 136 mg/dL (<200) 07/16/20 06:44 LDL Cholesterol, Calc 65 mg/dL (0-99) 07/16/20 06:44 HDL Cholesterol 60 mg/dL (40-60) 07/16/20 06:44 TSH 1.310 mIU/L (0.465-4.680) 07/16/20 06:44 Urine Color Colorless 07/20/20 21:50 Urine Appearance Clear (Clear) 07/20/20 21:50 Urine pH 6.0 (5.0-8.0) 07/20/20 21:50 Ur Specific [place] 1.006 (1.001-1.035) 07/20/20 21:50 Urine Protein Negative (Negative) 07/20/20 21:50 Urine Glucose (UA) Negative (Negative) 07/20/20 21:50 Urine Ketones Negative (Negative) 07/20/20 21:50 Urine Blood Negative (Negative) 07/20/20 21:50 Urine Nitrite Negative (Negative) 07/20/20 21:50 Urine Bilirubin Negative (Negative) 07/20/20 21:50 Urine Urobilinogen <2.0 mg/dL (<2.0) 07/20/20 21:50 Ur Leukocyte Esterase Negative (Negative) 07/20/20 21:50 Urine Opiates Screen Negative ng/mL (Negative) 07/20/20 21:50 Ur Oxycodone Screen Not Detected (NotDetected) 07/15/20 10:57 Urine Methadone Screen Negative ng/mL (Negative) 07/20/20 21:50 Ur Propoxyphene Screen Negative ng/mL (Negative) 07/20/20 21:50 Ur Barbiturates Screen Not Detected (NotDetected) 07/15/20 10:57 Urine Barbiturates Negative ng/mL (Negative) 07/20/20 21:50 U Tricyclic Antidepress Not Detected (NotDetected) 07/15/20 10:57 Ur Phencyclidine Scrn Negative ng/mL (Negative) 07/20/20 21:50 Ur Amphetamine Screen Negative ng/mL (Negative) 07/20/20 21:50 Ur Amphetamines Screen Not Detected (NotDetected) 07/15/20 10:57 U Methamphetamines Scrn Not Detected (NotDetected) 07/15/20 10:57 U Benzodiazepines Scrn Negative ng/mL (Negative) 07/20/20 21:50 Urine Cocaine Screen Negative ng/mL (Negative) 07/20/20 21:50 U Cannabinoids Screen Positive ng/mL (Negative) A 07/20/20 21:50 U Marijuana (THC) Screen Detected (NotDetected) H 07/15/20 10:57 Urine Alcohol Negative mg/dL (Negative) 07/20/20 21:50 Serum Alcohol <10 mg/dL 07/15/20 10:57 Coronavirus (PCR) Not Detected (Not Detectd) 07/15/20 16:38 Vital Signs Temp 98.2 F 07/23/20 09:10 Pulse 72 07/23/20 08:29 Resp 16 07/23/20 08:29 BP 132/82 07/23/20 08:29 Pulse Ox 98 07/23/20 08:29 Intake & Output 07/22/20 07/23/20 07/23/20 18:59 06:59 18:59 Weight 85.9 kg Patient Condition at Discharge: Stable Plan - Discharge Summary Discharge Rx Participant: No New Discharge Prescriptions: New Nicotine 14Mg/24Hr Patch [Habitrol] 1 patch TRANSDERM DAILY 14 Days patch Discharge Medication List Nicotine 14Mg/24Hr Patch [Habitrol] 1 patch TRANSDERM DAILY 14 Days patch 07/20/20 [Rx] Follow up Appointment(s)/Referral(s): [facility] [Outside] - 07/24/20 12:30 pm (Intake appointment 07/24/20 at 12:30 pm with Marcia at [facility].) None,Stated [Primary Care Provider] - 1-2 days [facility] [NON[facility]STAFF] - 1 Week Patient Instructions/Handouts: How to Stop Smoking (DC), Brief Psychotic Disorder (DC), Cannabis Abuse (DC) Activity/Diet/Wound Care/Special Instructions: Activity and diet as tolerated. Avoid the use of street drugs and alcohol. Take all medications as prescribed. When you are in need of refills on your medications please contact your medical provider and/or outpatient psychiatrist to have this done. Please go to scheduled outpatient appointment for aftercare treatment. If symptoms return or become worse, call the crisis line at and/or go to the nearest emergency room for evaluation. Discharge Disposition: HOME SELF-CARE
== END 2020-07-23 12:38 | disposition home or self-care (01) | DRG 885 ==
LOC: EC 10:48 → 3MHU 13:45
PROVIDERS: ADMIT Psychiatry & Neurology Psychiatry; ATTEND Psychiatry & Neurology Psychiatry
DX: F23 Brief psychotic disorder (principal); F12.10 Cannabis abuse, uncomplicated; F17.210 Nicotine dependence, cigarettes, uncomplicated; Z20.822 Contact with and (suspected) exposure to COVID-19
CPT/HCPCS: 36415; 70450; 80053; 80061; 80306; 80320; 81003; 82140; 83036; 84443; 85025; 85610; 85730; 87635; 93005; 96360; 96372; 99285